=== PATIENT | male | born 1985 | race Two or more races ===

== ENCOUNTER 2025-06-03 23:01 | Emergency (ER) | payer MEDICAID, OTHER ==
[~2025-06-03] VITALS: Ht 175.3 cm; Wt 100.1 kg
[2025-06-04 01:21] VITALS: BP 114/67; PULSE 65; RESP 16; TEMP 98.3; O2SAT 97
--- NOTE | 2025-06-04 01:33 | ED.PDOC ---
HPI Comments 39-year-old male presents to the ED chief complaint laceration to left hand 4th finger. Patient states happened approximately four days ago all working on a car cut himself on piece of metal. He reports pain, swelling, notes bleeding is controlled. Denies numbness or weakness or any other known injury at this time. Chief Complaint: Wound Check Time Seen by MD: 23:10 Reviewed Notes: Nurses Notes, Medications, Allergies Home Meds Active Scripts Amoxicillin & Pot Clavulanate (AUGMENTIN TABLET) 875 Mg Tb, 875 MG PO BID for 7 Days, #14 TAB Prov:MORELIA HARTLEY [employer] 06/04/25 Information Source: Patient Mode of Arrival: Ambulatory Complexity: Intermediate Laceration Length (cm): 3 Past Medical History PAST MEDICAL HISTORY: Denies Surgical History: Denies all surgeries Family History Family History: Unknown Social History Smoker: Non-Smoker Alcohol: Denies ETOH Use Drugs: Denies Drug Use All Other Systems: Reviewed and Negative (see hpi) Physical Exam General Appearance: No Apparent Distress, Normal HEENT: Pharynx Normal Neck: Full Range of Motion, Non-Tender Respiratory: Lungs Clear, No Respiratory Distress, Normal Breath Sounds Cardiovascular: No Murmur, Normal Peripheral Pulses, Regular Rate/Rhythm Breast Exam: Deferred Gastrointestinal: Non Tender, Soft Genitalia: Deferred Pelvic: Deferred Rectal: Deferred Extremities: No calf tenderness, Normal capillary refill, Normal range of motion, Non-tender Musculoskeletal : Apperance: Normal Neurologic: Alert, No Motor Deficits, Normal Affect, Normal Mood, No Sensory Deficits Cerebellar Function: Normal Reflexes: NOT DONE Skin: Dry, Normal Color, Warm, Wounds (3 cm avulsion laceration with flap left hand 4th digit middle phalanx no obvious foreign body bleeding controlled moderate edema about the finger strength sensory motion intact cap refill less than 3 seconds) Lymphatic: No Adenopathy Was a procedure done? Was a procedure done?: Yes Sedation Sedation?: No Informed consent obtained: Yes Laceration Repair : Location 3 cm avulsion right hand 4th digit middle phalanx Length 3cm Anesthetic: Lidocaine, Without epi Laceration Repair Prep: Saline, Betadine, by Irrigation Laceration Repair Wound Comple: epidermis/dermis repair Laceration Repair: Number of sutures (3), Simple, Gauze Informed consent obtained: Yes Risks, benefits, and alternati: Yes Notes Patient tolerated well with minimal blood loss loose sutures in place finger placed in frog splint and dressed Differential diagnosis Generic Laceration: Fracture, Retained Foriegn Body, Tendon Injury, Avulsion X-Ray, Labs, Meds, VS Vital Signs Date Time Temp Pulse Resp B/P (MAP) Pulse Ox O2 Delivery O2 Flow Rate FiO2 06/04/25 01:21 65 16 97 Room Air 06/04/25 01:21 98.3 65 16 114/67 (83) 97 98.3 06/03/25 23:03 98.1 71 18 126/79 96 98.1 Current Medications Medications (Trade) Dose Ordered Sig/Doc Route Start Time Stop Time Status Last Admin Amoxicillin/ Clavulanate Potassium (Augmentin Tablet) 875 mg ONCE ONCE PO 06/04/25 02:30 06/04/25 02:31 DC 06/04/25 02:29 X-Ray, Labs, Meds, VS Comment SEE PROCEDURE NOTE. Advised [id number] Tylenol or Motrin as needed for the pain per labeled dosing instructions. Suture removal within 5-7 days. Advised to follow up urgent care primary care or back in the ER for removal. Advised to monitor for signs and symptoms of infection and uncontrolled bleeding return to the ER as indicated. Pt indicate understanding and agree with discharge plan of care. Images Reviewed?: Images reviewed and evaluated by me Time of 1ST Reevaluation: 23:10 Reevaluation 1ST: Unchanged Time of 2ND Reevaluation: 02:42 Reevaluation 2ND: Improved Patient Education/Counseling: Diagnosis, Treatment, Need For Follow Up Family Education/Counseling: No Family Present Departure 1 Departure Time of Disposition: 02:42 Impression: Primary Impression: Avulsion of finger Qualified Codes: S61.209A - Unspecified open wound of unspecified finger without damage to nail, initial encounter Disposition: 01 HOME / SELF CARE / HOMELESS Condition: Stable e-Prescriptions Amoxicillin & Pot Clavulanate (AUGMENTIN TABLET) 875 Mg Tb 875 MG PO BID for 7 Days, #14 TAB Prov: MORELIA HARTLEY 06/04/25 Discharged With: Self Critical Care Note Critical Care Time?: No Stability Stability form required: MORELIA Singh Jun 04, 2025 01:33
[2025-06-04] MEDS ORDERED: AUG875T PO (02:22)
--- NOTE | 2025-06-04 02:28 | DVH ---
CLINICAL INDICATION: 4th digit injury TECHNIQUE: XY R HAND 3 VIEW XRAY Comparison: None FINDINGS/IMPRESSION: : There is no evidence of acute fracture or dislocation. Moderate dorsal 4th digit soft tissue irregularity consistent with laceration and swelling. Soft tissues are otherwise unremarkable. No radiodense foreign bodies.
[2025-06-04] MEDS: TETANUS-DIPTH-ACEL PERTUSSIS 0.5ML SYR Tdap IM ONE (02:40)
== END 2025-06-04 02:43 | disposition home or self-care (01) ==
LOC: ER 23:01
DX: S61.215A Laceration without foreign body of left ring finger without damage to nail, initial encounter (principal); W26.8XXA Contact with other sharp object(s), not elsewhere classified, initial encounter; Y93.89 Activity, other specified; Y92.89 Other specified places as the place of occurrence of the external cause; Y99.8 Other external cause status
CPT/HCPCS: 12002; 73130; 90471; 90715